=== PATIENT | female | born 1955 | race Caucasian/White ===

== ENCOUNTER 2019-11-17 12:49 | Emergency (ER) | payer OTHER ==
[2019-11-17] MEDS ORDERED: Sodium Chloride 0.9% 1000 ML 1,000 ML IV STA (13:02)
[2019-11-17] MEDS ORDERED: Sodium Chloride 0.9% 1000 ML 1,000 ML ONE (13:12)
--- NOTE | 2019-11-17 13:22 | XRAY ---
Indication: Palpitations. Comparison: None Portable chest demonstrates normal heart and lungs. Bony thorax intact with minimal degenerative changes and mild double curvature scoliosis.
[2019-11-17 13:34] LABS: Absolute Neutrophil Ct (ANC) 6.55 (1.4-6.9); BASOPHIL % 0.4 % (0.0-0.4); Basophil (Absolute #) 0.04 (0-0.4); Eosinophil % 0.1 % (0.00-5.0); Eosinophil (Absolute #) 0.01 (0-0.5); Hematocrit 43.6 % (35-47); Hemoglobin 14.3 gm/dl (12.0-16.0); Lymphocyte (Absolute #) 1.84 (1.0-4.6); Lymphocytes % 20.1 % (24.0-44.0); Mean Cell Volume 94.6 fl (78-100); Mean Corpuscular Hgb Concent. 32.8 g/dl (32-36); Mean Platelet Volume 10.5 fl (7.5-11.0); Monocyte (Absolute #) 0.73 (0.0-1.3); Neutrophil % 71.4 % (36.0-66.0); Platelet Count 341 K/mm3 (150-450); Red Blood Count 4.61 M/mm3 (4.1-5.4); Red Cell Distribution Width 13.6 % (11.5-14.0); White Blood Count 9.2 K/mm3 (4.0-10.5)
[2019-11-17 13:38] LABS: INR 1.04 (0.8-3.0); PROTIME 11.8 SECONDS (9.95-12.35)
[2019-11-17 13:41] LABS: PTT 32.9 SECONDS (25.3-37.0)
[2019-11-17 13:51] LABS: ALBUMIN 5.5 g/dL (3.5-5.0); ALKALINE PHOSPHATASE 69 U/L (38-126); AMYLASE 81 U/L (30-110); ANION GAP 14.6 MEQ/L (5-15); BLOOD UREA NITROGEN 11 mg/dL (7-17); CHLORIDE 101 mmol/L (98-107); Calcium 10.7 mg/dL (8.4-10.2); Carbon Dioxide 29 mmol/L (22-30); Creatinine 1 0.71 mg/dL (0.52-1.04); EST GLOMERULAR FILTRATION RATE > 60.0 ML/MIN; Glucose 172 mg/dL (74-106); LIPASE 107 U/L (23-300); NT PRO BNP 108 pg/mL (0-900); Potassium 3.7 mmol/L (3.5-5.1); SGOT/AST 24 U/L (14-36); SGPT/ALT 17 U/L (0-35); SODIUM 141 mmol/L (137-145); Total Protein 8.9 g/dL (6.3-8.2)
[2019-11-17 13:56] LABS: D-DIMER QUANTITATIVE < 215 ng/mL (215-500)
[2019-11-17] MEDS ORDERED: Lopressor 25MG Tab PO ONE (14:43)
[2019-11-17] MEDS ORDERED: Lopressor 25MG Tab ONE (15:01)
--- NOTE | 2019-11-17 15:07 | ERPHSYRPT ---
- History of Present Illness Time Seen by Provider: 11/17/19 13:05 Source: patient Exam Limitations: no limitations Patient Subjective Stated Complaint: palpitations Triage Nursing Assessment: pt to ED c/o palpitations x 1 day, intermittently comes and goes for couple months. denies CP or SOB with sx. only correlating sx is dry mouth and occasional hot flashes. typically lasts less than a day. 0/10 pain. no COVID sx or exposure. heart sounds clear, lung sounds clear and equal bilat. Physician History: Is a 64-year-old white female who has had palpitations on and off for a few months seems to getting worse. She noted the onset today when she awoke and it has continued. She denies any nausea vomiting diarrhea no chest pain no history of cardiac problems no change in her weight. Timing/Duration: today Chest Pain Radiation: no radiation Severity of Pain-Max: none Severity of Pain-Current: none Nitro Today/Relief: no nitro taken today Aspirin Treatment Today: no aspirin today Allergies/Adverse Reactions: sulfamethoxazole [From Bactrim] Allergy (Mild, Verified 11/17/19 13:06) Rash trimethoprim [From Bactrim] Allergy (Mild, Verified 11/17/19 13:06) Rash Hx Tetanus, Diphtheria Vaccination/Date Given: Yes Hx Influenza Vaccination/Date Given: Yes Immunizations Up to Date: Yes Travel Risk - International Travel Have you traveled outside of the country in past 3 weeks: No - Coronavirus Screening Close contact with a COVID-19 positive Pt in past 14-21 Days: No - Review of Systems Constitutional: No Fever, No Chills Eyes: No Symptoms Ears, Nose, & Throat: No Symptoms Respiratory: No Cough, No Dyspnea Cardiac: Palpitations, No Chest Pain, No Edema, No Syncope Abdominal/Gastrointestinal: No Abdominal Pain, No Nausea, No Vomiting, No Diarrhea Genitourinary Symptoms: No Dysuria Musculoskeletal: No Back Pain, No Neck Pain Skin: No Rash Neurological: No Dizziness, No Focal Weakness, No Sensory Changes Psychological: No Symptoms Endocrine: No Symptoms All Other Systems: Reviewed and Negative - Past Medical History Pertinent Past Medical History: Yes Musculoskeletal History: Osteoporosis - Past Surgical History Past Surgical History: Yes Other Surgical History: cyst removed from ovary 1992 - Social History Smoking Status: Never smoker Exposure to second hand smoke: No Drug Use: none Patient Lives Alone: No - Nursing Vital Signs Nursing Vital Signs: Initial Vital Signs Temperature 98.1 F 11/17/19 12:54 Pulse Rate 108 H 11/17/19 12:54 Respiratory Rate 19 11/17/19 12:54 Blood Pressure 190/96 11/17/19 12:54 O2 Sat by Pulse Oximetry 99 11/17/19 12:54 Pain Scale Pain Intensity 4 - Physical Exam General Appearance: no apparent distress, alert Eye Exam: PERRL/EOMI, eyes nml inspection Ears, Nose, Throat Exam: normal ENT inspection, moist mucous membranes Neck Exam: normal inspection, non-tender, supple Respiratory Exam: normal breath sounds, lungs clear, No respiratory distress Cardiovascular Exam: regular rate/rhythm, normal heart sounds, tachycardia (sinus tach rate of 105), No edema Gastrointestinal/Abdomen Exam: soft, No tenderness, No mass Back Exam: normal inspection, No CVA tenderness, No vertebral tenderness Extremity Exam: normal inspection, normal range of motion Neurologic Exam: alert, oriented x 3, cooperative, normal mood/affect, nml cerebellar function, sensation nml, No motor deficits Skin Exam: normal color, warm, dry Lymphatic Exam: No adenopathy SpO2: 98 - Course Nursing assessment & vital signs reviewed: Yes EKG Interpreted by Me: RATE, Sinus Tach, NORMAL AXIS, NORMAL INTERVALS, NORMAL QRS - Radiology Exams Chest X-ray Interpretation: Reviewed by me, Negative Ordered Tests: Active Orders 24 hr Category Date Time Status Sole Layer STAT Care 11/17/19 13:03 Active EKG-ER Only STAT Care 11/17/19 13:02 Active CHEST 1 VIEW (PORTABLE) Stat Exams 11/17/19 13:03 Completed AMYLASE Stat Lab 11/17/19 13:25 Completed CBC W DIFF Stat Lab 11/17/19 13:25 Completed CMP Stat Lab 11/17/19 13:25 Completed D-DIMER QUANTITATIVE Stat Lab 11/17/19 13:25 Completed LIPASE Stat Lab 11/17/19 13:25 Completed Lactic Acid Stat Lab 11/17/19 13:02 Completed NT PRO BNP Stat Lab 11/17/19 13:25 Completed PROTIME WITH INR Stat Lab 11/17/19 13:25 Completed PTT Stat Lab 11/17/19 13:25 Completed TROPONIN Q3H Lab 11/17/19 13:25 Completed TROPONIN Q3H Lab 11/17/19 16:15 Ordered TROPONIN Q3H Lab 11/17/19 19:15 Ordered TROPONIN Q3H Lab 11/17/19 22:15 Ordered TROPONIN Q3H Lab 11/18/19 01:15 Ordered TSH [TSH, 3RD Generation] Stat Lab 11/17/19 13:05 Completed UA W/RFX UR CULTURE Stat Lab 11/17/19 13:03 Uncollected Urine Triage Profile Stat Lab 11/17/19 13:03 Uncollected Medication Summary Discontinued Medications Generic Name Dose Route Start Last Admin Trade Name Sveta PRN Reason Stop Dose Admin Sodium Chloride 1,000 mls @ 999 mls/hr 11/17/19 13:02 11/17/19 14:59 Sodium Chloride 0.9% 1000 Ml IV 11/17/19 14:02 Infused .Q1H1M STA Infusion Sodium Chloride Confirm 11/17/19 13:12 Sodium Chloride 0.9% 1000 Ml Administered 11/17/19 13:13 Dose 1,000 mls @ ud .ROUTE .STK-MED ONE Metoprolol Tartrate 25 mg 11/17/19 14:43 11/17/19 15:02 Lopressor 25mg Tab PO 11/17/19 14:44 25 mg STAT ONE Administration Lab/Rad Data: Laboratory Result Diagrams 11/17/19 13:25 11/17/19 13:25 Laboratory Results 11/17/19 11/17/19 11/17/19 Range/Units 13:25 13:25 13:25 WBC (4.0-10.5) K/mm3 RBC (4.1-5.4) M/mm3 Hgb (12.0-16.0) gm/dl Hct (35-47) % MCV (78-100) fl MCH (26-32) pg MCHC (32-36) g/dl RDW (11.5-14.0) % Plt Count (150-450) K/mm3 MPV (7.5-11.0) fl Gran % (36.0-66.0) % Eos # (Auto) (0-0.5) Absolute Lymphs (auto) (1.0-4.6) Absolute Monos (auto) (0.0-1.3) Lymphocytes % (24.0-44.0) % Monocytes % (0.0-12.0) % Eosinophils % (0.00-5.0) % Basophils % (0.0-0.4) % Absolute Granulocytes (1.4-6.9) Basophils # (0-0.4) PT 11.8 (9.95-12.35) SECONDS INR 1.04 (0.8-3.0) APTT 32.9 (25.3-37.0) SECONDS D-Dimer < 215 L (215-500) ng/mL Sodium 141 (137-145) mmol/L Potassium 3.7 (3.5-5.1) mmol/L Chloride 101 (98-107) mmol/L Carbon Dioxide 29 (22-30) mmol/L Anion Gap 14.6 (5-15) MEQ/L BUN 11 (7-17) mg/dL Creatinine 0.71 (0.52-1.04) mg/dL Estimated GFR > 60.0 ML/MIN Glucose 172 H (74-106) mg/dL Lactic Acid (0.4-2.0) Calcium 10.7 H (8.4-10.2) mg/dL Total Bilirubin 0.70 (0.2-1.3) mg/dL AST 24 (14-36) U/L ALT 17 (0-35) U/L Alkaline Phosphatase 69 (38-126) U/L Troponin I < 0.012 (0.000-0.034) ng/mL NT-Pro-B Natriuret Pep 108 (0-900) pg/mL Serum Total Protein 8.9 H (6.3-8.2) g/dL Albumin 5.5 H (3.5-5.0) g/dL Amylase 81 (30-110) U/L Lipase 107 (23-300) U/L TSH 3rd Generation (0.47-4.68) mIU/L 11/17/19 11/17/19 11/17/19 Range/Units 13:25 13:05 13:02 WBC 9.2 (4.0-10.5) K/mm3 RBC 4.61 (4.1-5.4) M/mm3 Hgb 14.3 (12.0-16.0) gm/dl Hct 43.6 (35-47) % MCV 94.6 (78-100) fl MCH 31.0 (26-32) pg MCHC 32.8 (32-36) g/dl RDW 13.6 (11.5-14.0) % Plt Count 341 (150-450) K/mm3 MPV 10.5 (7.5-11.0) fl Gran % 71.4 H (36.0-66.0) % Eos # (Auto) 0.01 (0-0.5) Absolute Lymphs (auto) 1.84 (1.0-4.6) Absolute Monos (auto) 0.73 (0.0-1.3) Lymphocytes % 20.1 L (24.0-44.0) % Monocytes % 8.0 (0.0-12.0) % Eosinophils % 0.1 (0.00-5.0) % Basophils % 0.4 (0.0-0.4) % Absolute Granulocytes 6.55 (1.4-6.9) Basophils # 0.04 (0-0.4) PT (9.95-12.35) SECONDS INR (0.8-3.0) APTT (25.3-37.0) SECONDS D-Dimer (215-500) ng/mL Sodium (137-145) mmol/L Potassium (3.5-5.1) mmol/L Chloride (98-107) mmol/L Carbon Dioxide (22-30) mmol/L Anion Gap (5-15) MEQ/L BUN (7-17) mg/dL Creatinine (0.52-1.04) mg/dL Estimated GFR ML/MIN Glucose (74-106) mg/dL Lactic Acid 1.6 (0.4-2.0) Calcium (8.4-10.2) mg/dL Total Bilirubin (0.2-1.3) mg/dL AST (14-36) U/L ALT (0-35) U/L Alkaline Phosphatase (38-126) U/L Troponin I (0.000-0.034) ng/mL NT-Pro-B Natriuret Pep (0-900) pg/mL Serum Total Protein (6.3-8.2) g/dL Albumin (3.5-5.0) g/dL Amylase (30-110) U/L Lipase (23-300) U/L TSH 3rd Generation 1.510 (0.47-4.68) mIU/L - Progress Progress: improved Air Movement: good Blood Culture(s) Obtained: No Antibiotics given: No - Departure Departure Disposition: Home Clinical Impression: Palpitations Condition: Stable Critical Care Time: No Referrals: KATHY RUBIN DO [Primary Care Provider] - Instructions: Palpitations (DC) Prescriptions: Metoprolol Succinate 50 mg [Toprol Xl 50 MG] 50 mg PO DAILY 30 Days #30 tablet
[2019-11-17 16:02] VITALS: BP 140/93; PULSE 67; O2SAT 97
== END 2019-11-17 16:00 | disposition home or self-care (01) ==
LOC: ED 12:49
DX: R00.2 Palpitations (principal)
CPT/HCPCS: 36000; 36415; 71045; 80053; 82150; 83605; 83690; 83880; 84443; 84484; 85025; 85379; 85610; 85730; 93005; 93041; 96367; 96374; 99284; A9270-GY

== ENCOUNTER 2019-11-30 09:33 | Observation (INO) | payer OTHER ==
--- NOTE | 2019-11-30 09:51 | ERPHSYRPT ---
- History of Present Illness Time Seen by Provider: 11/30/19 09:40 Source: patient Exam Limitations: no limitations Physician History: Patient is a 64-year-old female presents to our ED as a referral from Dr. Moore for evaluation of uncontrolled hypertension. Patient states that she has not been feeling well for 3 weeks. However symptoms worsened yesterday. Patient states she feels jittery. Patient's blood pressure has been higher than normal. Patient's primary care physician has been working to control patient's blood pressure. Patient was initially on metoprolol and then switched to diltiazem. Patient currently on 120 mg daily. Patient states she took a dose of lisinopril today in addition to her diltiazem. Patient preliminary work-up is suspicious for possible pheochromocytoma. Patient did have a CAT scan to further investigate potential masses however are normal adrenal masses were identified. In light of her ongoing symptoms patient was sent to our ED for a cardiac work-up and admission for further evaluation and treatment. Patient is currently asymptomatic. No nausea or vomiting. No diarrhea. No rash. No headache. No diaphoresis. Patient voices no other complaints concerns at this time. Timing/Duration: yesterday Severity: moderate Modifying Factors: Improves With: nothing Associated Symptoms: other (Feels "jittery"), No nausea, No vomiting, No abdominal pain, No shortness of breath, No heartburn, No diaphoresis, No cough, No chills Allergies/Adverse Reactions: sulfamethoxazole [From Bactrim] Allergy (Mild, Verified 11/30/19 09:54) Rash trimethoprim [From Bactrim] Allergy (Mild, Verified 11/30/19 09:54) Rash Home Medications: Diltiazem HCl [Cartia Xt] 120 mg PO DAILY 11/30/19 [History] Hx Tetanus, Diphtheria Vaccination/Date Given: Yes Hx Influenza Vaccination/Date Given: Yes Travel Risk - International Travel Have you traveled outside of the country in past 3 weeks: No - Coronavirus Screening Are you exhibiting any of the following symptoms?: No Close contact with a COVID-19 positive Pt in past 14-21 Days: No - Review of Systems Constitutional: No Symptoms, No Fever, No Chills Eyes: No Symptoms Ears, Nose, & Throat: No Symptoms Respiratory: No Symptoms, No Cough, No Dyspnea Cardiac: No Symptoms, No Chest Pain, No Edema, No Syncope Abdominal/Gastrointestinal: No Symptoms, No Abdominal Pain, No Nausea, No Vomiting, No Diarrhea Genitourinary Symptoms: No Symptoms, No Dysuria Musculoskeletal: No Symptoms, No Back Pain, No Neck Pain Skin: No Symptoms, No Rash Neurological: No Symptoms, No Dizziness, No Focal Weakness, No Sensory Changes Psychological: No Symptoms Endocrine: No Symptoms Hematologic/Lymphatic: No Symptoms Immunological/Allergic: No Symptoms All Other Systems: Reviewed and Negative - Past Medical History Pertinent Past Medical History: Yes Musculoskeletal History: Osteoporosis - Past Surgical History Past Surgical History: Yes Other Surgical History: cyst removed from ovary 1992 - Social History Smoking Status: Never smoker Exposure to second hand smoke: No Drug Use: none Patient Lives Alone: No - Nursing Vital Signs Nursing Vital Signs: Initial Vital Signs Temperature 98.3 F 11/30/19 09:39 Pulse Rate 90 11/30/19 09:39 Respiratory Rate 17 11/30/19 09:39 Blood Pressure 166/85 11/30/19 09:39 O2 Sat by Pulse Oximetry 99 11/30/19 09:39 Pain Scale Pain Intensity 0 - Physical Exam General Appearance: no apparent distress, alert Eye Exam: PERRL/EOMI, eyes nml inspection Ears, Nose, Throat Exam: normal ENT inspection, TMs normal, pharynx normal, moist mucous membranes Neck Exam: normal inspection, non-tender, supple, full range of motion Respiratory Exam: normal breath sounds, lungs clear, No respiratory distress Cardiovascular Exam: regular rate/rhythm, normal heart sounds, normal peripheral pulses Gastrointestinal/Abdomen Exam: soft, normal bowel sounds, No tenderness, No mass Back Exam: normal inspection, normal range of motion, No CVA tenderness, No vertebral tenderness Extremity Exam: normal inspection, normal range of motion, pelvis stable Neurologic Exam: alert, oriented x 3, cooperative, normal mood/affect, nml cerebellar function, nml station & gait, sensation nml, No motor deficits Skin Exam: normal color, warm, dry, No rash Lymphatic Exam: No adenopathy SpO2 Interpretation: normal SpO2: 99 O2 Delivery: Room Air - Course Nursing assessment & vital signs reviewed: Yes EKG Interpreted by Me: RATE (78), Sinus Rhythm, NORMAL AXIS, NORMAL INTERVALS - Radiology Exams Chest X-ray Interpretation: Teleradiologist Report (Mildly hyperinflated lungs. Otherwise no acute process identified.) Ordered Tests: Active Orders 24 hr Category Date Time Status President/Gm Production & Live Experiences STAT Care 11/30/19 09:49 Active EKG-ER Only STAT Care 11/30/19 09:48 Active IV Insertion STAT Care 11/30/19 09:48 Active Pulse Oximetry (ED) STAT Care 11/30/19 09:48 Active CHEST 1 VIEW (PORTABLE) Stat Exams 11/30/19 09:49 Completed CBC W DIFF Stat Lab 11/30/19 10:00 Completed CMP Stat Lab 11/30/19 10:00 Completed MAGNESIUM Stat Lab 11/30/19 10:00 Completed NT PRO BNP Stat Lab 11/30/19 10:00 Completed TROPONIN Q3H Lab 11/30/19 10:00 Completed TROPONIN Q3H Lab 11/30/19 13:00 Ordered TROPONIN Q3H Lab 11/30/19 16:00 Ordered TROPONIN Q3H Lab 11/30/19 19:00 Ordered TROPONIN Q3H Lab 11/30/19 22:00 Ordered UA W/RFX UR CULTURE Stat Lab 11/30/19 10:00 Completed Transfer Order Routine Transfer 11/30/19 Ordered Lab/Rad Data: Laboratory Result Diagrams 11/30/19 10:00 11/30/19 10:00 Laboratory Results 11/30/19 11/30/19 11/30/19 Range/Units 10:00 10:00 10:00 WBC (4.0-10.5) K/mm3 RBC (4.1-5.4) M/mm3 Hgb (12.0-16.0) gm/dl Hct (35-47) % MCV (78-100) fl MCH (26-32) pg MCHC (32-36) g/dl RDW (11.5-14.0) % Plt Count (150-450) K/mm3 MPV (7.5-11.0) fl Gran % (36.0-66.0) % Eos # (Auto) (0-0.5) Absolute Lymphs (auto) (1.0-4.6) Absolute Monos (auto) (0.0-1.3) Lymphocytes % (24.0-44.0) % Monocytes % (0.0-12.0) % Eosinophils % (0.00-5.0) % Basophils % (0.0-0.4) % Absolute Granulocytes (1.4-6.9) Basophils # (0-0.4) Sodium 141 (137-145) mmol/L Potassium 3.4 L (3.5-5.1) mmol/L Chloride 103 (98-107) mmol/L Carbon Dioxide 28 (22-30) mmol/L Anion Gap 13.3 (5-15) MEQ/L BUN 9 (7-17) mg/dL Creatinine 0.61 (0.52-1.04) mg/dL Estimated GFR > 60.0 ML/MIN Glucose 132 H (74-106) mg/dL Calcium 10.5 H (8.4-10.2) mg/dL Magnesium 2.1 (1.6-2.3) mg/dL Total Bilirubin 0.50 (0.2-1.3) mg/dL AST 22 (14-36) U/L ALT 19 (0-35) U/L Alkaline Phosphatase 73 (38-126) U/L Troponin I < 0.012 (0.000-0.034) ng/mL NT-Pro-B Natriuret Pep 144 (0-900) pg/mL Serum Total Protein 8.7 H (6.3-8.2) g/dL Albumin 5.3 H (3.5-5.0) g/dL Urine Color STRAW (YELLOW) Urine Appearance CLEAR (CLEAR) Urine pH 7.0 (5-6) Ur Specific Buhl 1.002 (1.005-1.025) Urine Protein NEGATIVE (Negative) Urine Ketones NEGATIVE (NEGATIVE) Urine Blood NEGATIVE (0-5) Luis/ul Urine Nitrite NEGATIVE (NEGATIVE) Urine Bilirubin NEGATIVE (NEGATIVE) Urine Urobilinogen NEGATIVE (0-1) mg/dL Ur Leukocyte Esterase NEGATIVE (NEGATIVE) Urine WBC (Auto) NONE (0-5) /HPF U Epithel Cells (Auto) NONE (FEW) /HPF Urine Culture Reflexed NO (NO) Urine Glucose NEGATIVE (NEGATIVE) mg/dL 11/30/19 Range/Units 10:00 WBC 10.4 (4.0-10.5) K/mm3 RBC 4.83 (4.1-5.4) M/mm3 Hgb 14.6 (12.0-16.0) gm/dl Hct 45.0 (35-47) % MCV 93.2 (78-100) fl MCH 30.2 (26-32) pg MCHC 32.4 (32-36) g/dl RDW 13.7 (11.5-14.0) % Plt Count 369 (150-450) K/mm3 MPV 10.3 (7.5-11.0) fl Gran % 78.3 H (36.0-66.0) % Eos # (Auto) 0.01 (0-0.5) Absolute Lymphs (auto) 1.51 (1.0-4.6) Absolute Monos (auto) 0.70 (0.0-1.3) Lymphocytes % 14.6 L (24.0-44.0) % Monocytes % 6.8 (0.0-12.0) % Eosinophils % 0.1 (0.00-5.0) % Basophils % 0.2 (0.0-0.4) % Absolute Granulocytes 8.13 H (1.4-6.9) Basophils # 0.02 (0-0.4) Sodium (137-145) mmol/L Potassium (3.5-5.1) mmol/L Chloride (98-107) mmol/L Carbon Dioxide (22-30) mmol/L Anion Gap (5-15) MEQ/L BUN (7-17) mg/dL Creatinine (0.52-1.04) mg/dL Estimated GFR ML/MIN Glucose (74-106) mg/dL Calcium (8.4-10.2) mg/dL Magnesium (1.6-2.3) mg/dL Total Bilirubin (0.2-1.3) mg/dL AST (14-36) U/L ALT (0-35) U/L Alkaline Phosphatase (38-126) U/L Troponin I (0.000-0.034) ng/mL NT-Pro-B Natriuret Pep (0-900) pg/mL Serum Total Protein (6.3-8.2) g/dL Albumin (3.5-5.0) g/dL Urine Color (YELLOW) Urine Appearance (CLEAR) Urine pH (5-6) Ur Specific Buhl (1.005-1.025) Urine Protein (Negative) Urine Ketones (NEGATIVE) Urine Blood (0-5) Luis/ul Urine Nitrite (NEGATIVE) Urine Bilirubin (NEGATIVE) Urine Urobilinogen (0-1) mg/dL Ur Leukocyte Esterase (NEGATIVE) Urine WBC (Auto) (0-5) /HPF U Epithel Cells (Auto) (FEW) /HPF Urine Culture Reflexed (NO) Urine Glucose (NEGATIVE) mg/dL - Progress Progress: improved Progress Note: Patient reassessed. No active complaints at this time. Vital stable. Work-up at this point essentially negative. However patient has labile hypertension. Outpatient work-up suggestive of pheochromocytoma. Case discussed with Dr. Moore who request admission as well as consult to Dr. luna. Plan of care discussed with patient. She agrees to admission to [facility] for further evaluation and treatment. 11/30/19 10:59 Discussed with : Tonya Will see patient in: hospital (observation) Counseled pt/family regarding: lab results, diagnosis, rad results - Departure Departure Disposition: Observation Clinical Impression: Uncontrolled hypertension Condition: Stable Critical Care Time: No Referrals: KATHY RUBIN DO [Primary Care Provider] -
[2019-11-30 10:15] LABS: Absolute Neutrophil Ct (ANC) 8.13 (1.4-6.9); BASOPHIL % 0.2 % (0.0-0.4); Basophil (Absolute #) 0.02 (0-0.4); Eosinophil % 0.1 % (0.00-5.0); Eosinophil (Absolute #) 0.01 (0-0.5); Hemoglobin 14.6 gm/dl (12.0-16.0); Lymphocyte (Absolute #) 1.51 (1.0-4.6); Lymphocytes % 14.6 % (24.0-44.0); Mean Cell Volume 93.2 fl (78-100); Mean Corpuscular Hemoglobin 30.2 pg (26-32); Mean Corpuscular Hgb Concent. 32.4 g/dl (32-36); Mean Platelet Volume 10.3 fl (7.5-11.0); Monocytes % 6.8 % (0.0-12.0); Neutrophil % 78.3 % (36.0-66.0); Platelet Count 369 K/mm3 (150-450); Red Blood Count 4.83 M/mm3 (4.1-5.4); Red Cell Distribution Width 13.7 % (11.5-14.0); White Blood Count 10.4 K/mm3 (4.0-10.5)
[2019-11-30 10:20] LABS: Appearance CLEAR (CLEAR); Bilirubin NEGATIVE (NEGATIVE); Blood NEGATIVE Ery/ul (0-5); Glucose NEGATIVE (NEGATIVE); Ketones NEGATIVE (NEGATIVE); Leukocyte Esterase NEGATIVE (NEGATIVE); Nitrite NEGATIVE (NEGATIVE); Protein,Urine Dip NEGATIVE (Negative); Specific Gravity 1.002 (1.005-1.025); Urobilinogen NEGATIVE mg/dL (0-1)
--- NOTE | 2019-11-30 10:28 | XRAY ---
Exam: AP upright portable chest film from 11/30/2019. Comparison: AP upright portable chest film from 11/17/2019. Indication: Tachycardia, elevated blood pressure; chest pain. Findings: The transverse heart size is normal. There is mild tortuosity of descending thoracic aorta. The lungs appear mildly hyperinflated. No air space infiltrates, vascular congestion, pneumothorax, or pleural fluid is seen. I again see a minimal S-shaped scoliosis within the lower thoracic spine representing no change. No acute osseous process is seen. EKG leads are noted. Impression: 1. Mildly hyperinflated chest. Correlate clinically. 2. Otherwise, no acute cardiopulmonary disease is seen.
[2019-11-30 10:31] LABS: ALBUMIN 5.3 g/dL (3.5-5.0); ALKALINE PHOSPHATASE 73 U/L (38-126); ANION GAP 13.3 MEQ/L (5-15); BLOOD UREA NITROGEN 9 mg/dL (7-17); CHLORIDE 103 mmol/L (98-107); Calcium 10.5 mg/dL (8.4-10.2); Carbon Dioxide 28 mmol/L (22-30); Creatinine 1 0.61 mg/dL (0.52-1.04); EST GLOMERULAR FILTRATION RATE > 60.0 ML/MIN; Glucose 132 mg/dL (74-106); MAGNESIUM 2.1 mg/dL (1.6-2.3); NT PRO BNP 144 pg/mL (0-900); Potassium 3.4 mmol/L (3.5-5.1); SGOT/AST 22 U/L (14-36); SGPT/ALT 19 U/L (0-35); SODIUM 141 mmol/L (137-145); Total Protein 8.7 g/dL (6.3-8.2)
[2019-11-30 20:08] LABS: ANION GAP 14.3 MEQ/L (5-15); BLOOD UREA NITROGEN 12 mg/dL (7-17); CHLORIDE 103 mmol/L (98-107); Calcium 10.1 mg/dL (8.4-10.2); Carbon Dioxide 25 mmol/L (22-30); Cholesterol 175 mg/dL (50-200); Creatinine 1 0.63 mg/dL (0.52-1.04); EST GLOMERULAR FILTRATION RATE > 60.0 ML/MIN; Glucose 109 mg/dL (74-106); HDL CHOLESTEROL 73 mg/dL (40-60); LDL, DIRECT 87 mg/dL (30-100); Potassium 3.9 mmol/L (3.5-5.1); Risk Ratio 2.4; SODIUM 138 mmol/L (137-145); TRIGLYCERIDE 73 mg/dL (30-150)
[2019-11-30] MEDS ORDERED: Sodium Chloride 0.9% 10 ML FLUSH Syringe IV SCH (22:00)
[2019-12-01 05:35] LABS: Absolute Neutrophil Ct (ANC) 5.42 (1.4-6.9); BASOPHIL % 0.4 % (0.0-0.4); Basophil (Absolute #) 0.04 (0-0.4); Eosinophil (Absolute #) 0.09 (0-0.5); Hematocrit 39.8 % (35-47); Hemoglobin 12.9 gm/dl (12.0-16.0); Lymphocytes % 30.9 % (24.0-44.0); Mean Cell Volume 94.3 fl (78-100); Mean Corpuscular Hemoglobin 30.6 pg (26-32); Mean Corpuscular Hgb Concent. 32.4 g/dl (32-36); Mean Platelet Volume 10.8 fl (7.5-11.0); Monocyte (Absolute #) 0.93 (0.0-1.3); Monocytes % 9.9 % (0.0-12.0); Neutrophil % 57.8 % (36.0-66.0); Platelet Count 325 K/mm3 (150-450); Red Blood Count 4.22 M/mm3 (4.1-5.4); Red Cell Distribution Width 13.9 % (11.5-14.0); White Blood Count 9.4 K/mm3 (4.0-10.5)
[2019-12-01 05:37] LABS: ALBUMIN 4.5 g/dL (3.5-5.0); ALKALINE PHOSPHATASE 51 U/L (38-126); ANION GAP 11.1 MEQ/L (5-15); BLOOD UREA NITROGEN 12 mg/dL (7-17); CHLORIDE 102 mmol/L (98-107); Carbon Dioxide 27 mmol/L (22-30); Creatinine 1 0.65 mg/dL (0.52-1.04); EST GLOMERULAR FILTRATION RATE > 60.0 ML/MIN; Glucose 99 mg/dL (74-106); Potassium 3.8 mmol/L (3.5-5.1); SGOT/AST 21 U/L (14-36); SGPT/ALT 16 U/L (0-35); SODIUM 137 mmol/L (137-145); Total Protein 7.1 g/dL (6.3-8.2)
[2019-12-01 05:43] LABS: TROPONIN < 0.012 ng/mL (0.000-0.034)
--- NOTE | 2019-12-01 08:24 | CONS ---
CONSULT DATE: 11/30/2019 BRIEF HISTORY: This is a 64 year old female who was seen because recent onset of hypertension. The patient started to feel anxious and jittery for the last three weeks and she has been checking her blood pressure and it has been somewhat labile with the systolic blood pressure reaching about 190 associated with some mild tachycardia. She did have one episode of diaphoresis which was associated with hypertensive episode. She was recently placed on metoprolol and then switched to diltiazem. She has not been checking her blood pressure prior to this event. She denies any chest pain, no shortness of breath. She has never had any cardiac related disease in the past. She is a fairly active individual. She usually exercises by walking about two to three miles a day. She denies any paroxysmal nocturnal dyspnea, no pedal edema and no syncopal attacks. She had a CT scan of the abdomen which showed normal adrenal. She denies any diarrhea, vomiting, nausea or headache. CARDIAC RISK FACTORS: Negative for diabetes. Recent onset of hypertension. She does not smoke. No known hyperlipidemia. FAMILY HISTORY: Negative for premature coronary artery disease although mother from myocardial infarction at age 89. REVIEW OF SYSTEMS: SERVER ASSISTANT: No history of stroke. No seizures. No chronic headache. No diplopia. No blurring of vision. RESPIRATORY: No chronic cough. No hemoptysis. No pleuritic pain. CVS: History of palpitations. GI: No history of reflux. No heartburn. No nausea or vomiting. No diarrhea. : Negative for dysuria or hematuria. No nocturia. No urinary frequency. PERIPHERAL VASCULAR: Negative for DVT or claudication. MUSCULOSKELETAL: No significant degenerative joint disorder. SKIN: No active dermatological problems. HEMATOLOGY: No history of blood dyscrasia or transfusions. ENDOCRINE: No thyroid disorder. PAST SURGICAL HISTORY: Includes removal of a cyst from the ovary. SOCIAL HISTORY: She is . 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 She has no significant alcohol intake. PHYSICAL EXAMINATION: VITAL SIGNS: Her blood pressure initially was 166/85 with a heart rate of 90, respirations about 16. GENERAL: The patient is an elderly female oriented, conversant, who does not appear in any form of distress. HEENT: Unremarkable. NECK: No significant JVD. No carotid bruit. CHEST: The breath sounds are clear bilaterally. CARDIAC: Heart tones are within normal. The rhythm is regular. There is a short mid systolic murmur along the left parasternal border. The rhythm is regular. There is no gallop or rub. ABDOMEN: Soft with normal bowel sounds. No bruit. EXTREMITIES: No significant edema with good distal pulses. LAB DATA AND DIAGNOSTIC TESTS: Serial troponin I has been normal. The BUN 9, creatinine 0.6 with GFR greater than 60, potassium 3.4. Serum transaminases are normal. CBC is normal. EKG shows sinus rhythm with no significant ST-T displacement. ASSESSMENT AND PLAN: Recent onset of hypertension, will work her up for secondary types of hypertension. We are going to get a 24 hour urine, vanillymandelic acid (VMA), metanephrine and serum aldosterone will also be obtained. Meanwhile continue with current medical regimen. Further recommendations will be made after the tests have been completed. Echocardiogram will be obtained to assess for left ventricular hypertrophy and also etiology o the cardiac murmur which appeared to be secondary to mitral regurgitation. I will follow up with you.
--- NOTE | 2019-12-01 08:41 | PCM.SSS ---
History of Present Illness - Chief Complaint Chief Complaint: uncontrolled hypertension;suspect pheochromocytoma History of Present Illness: is a 64 year old female who has been in good health without and chronic dz other than osteoporosis. She was admitted for obs due to being up all night with B/P 190/90s and "jittery all night long like a caffine overload". Her is a retired EMT and has been taking her vitals since this started about a month ago.She has had pulse 110 and B/P as high as 198/100. Medications & Allergies Home Medications: Home Medication List Diltiazem HCl [Cartia Xt] 120 mg PO DAILY 11/30/19 [History Confirmed 11/30/19] Allergies/Adverse Reactions: Allergies Allergy/AdvReac Type Severity Reaction Status Date / Time sulfamethoxazole Allergy Mild Rash Verified 11/30/19 12:16 [From Bactrim] trimethoprim [From Bactrim] Allergy Mild Rash Verified 11/30/19 12:16 - Past Medical History Past Medical History: Yes Neurological History: No Pertinent History ENT History: No Pertinent History Cardiac History: Hypertension Respiratory History: No Pertinent History Endocrine Medical History: No Pertinent History Musculoskelatal History: Osteoporosis GI Medical History: No Pertinent History History: No Pertinent History Pyscho-Social History: No Pertinent History Reproductive Disorders: No Pertinent History Comment: intestinal parasite (giardia) - Female History Are you now?: No - Past Surgical History Past Surgical History: Yes Neuro Surgical History: No Pertinent History Cardiac History: No Pertinent History Respiratory Surgery: No Pertinent History GI Surgical History: No Pertinent History Genitourinary Surgical Hx: No Pertinent History Musculskeletal Surgical Hx: No Pertinent History Female Surgical History: No Pertinent History Other Surgical History: cyst removed from ovary 1992 - Social History Smoking Status: Never smoker Exposure to second hand smoke: No Alcohol: Occasionally Drug Use: none - Physical Exam Vital Signs: Vital Signs - 24 hr Temp Pulse Resp BP Pulse Ox 12/01/19 08:00 98.0 F 59 L 17 122/69 94 L 12/01/19 04:00 98.0 F 56 L 16 129/70 98 11/30/19 23:54 98.1 F 70 18 107/71 96 11/30/19 19:15 98.4 F 74 18 125/71 98 11/30/19 15:40 98.3 F 87 20 126/69 98 09/03/20 12:04 98.1 F 86 18 143/75 95 11/30/19 12:00 98.1 F 86 143/75 95 11/30/19 11:59 98.1 F 86 143/75 95 11/30/19 11:37 66 18 121/73 98 11/30/19 11:01 99 11/30/19 10:44 76 18 143/90 98 11/30/19 09:53 100 11/30/19 09:39 98.3 F 90 17 166/85 99 Results - Labs Lab/Micro Results: Lab Results-Last 24 Hours 11/30/19 11/30/19 11/30/19 Range/Units 10:00 10:00 10:00 WBC 10.4 (4.0-10.5) K/mm3 RBC 4.83 (4.1-5.4) M/mm3 Hgb 14.6 (12.0-16.0) gm/dl Hct 45.0 (35-47) % MCV 93.2 (78-100) fl MCH 30.2 (26-32) pg MCHC 32.4 (32-36) g/dl RDW 13.7 (11.5-14.0) % Plt Count 369 (150-450) K/mm3 MPV 10.3 (7.5-11.0) fl Gran % 78.3 H (36.0-66.0) % Eos # (Auto) 0.01 (0-0.5) Absolute Lymphs (auto) 1.51 (1.0-4.6) Absolute Monos (auto) 0.70 (0.0-1.3) Lymphocytes % 14.6 L (24.0-44.0) % Monocytes % 6.8 (0.0-12.0) % Eosinophils % 0.1 (0.00-5.0) % Basophils % 0.2 (0.0-0.4) % Absolute Granulocytes 8.13 H (1.4-6.9) Basophils # 0.02 (0-0.4) Ionized Calcium (1.12-1.32) mmol/L Sodium 141 (137-145) mmol/L Potassium 3.4 L (3.5-5.1) mmol/L Chloride 103 (98-107) mmol/L Carbon Dioxide 28 (22-30) mmol/L Anion Gap 13.3 (5-15) MEQ/L BUN 9 (7-17) mg/dL Creatinine 0.61 (0.52-1.04) mg/dL Estimated GFR > 60.0 ML/MIN Glucose 132 H (74-106) mg/dL Calcium 10.5 H (8.4-10.2) mg/dL Magnesium 2.1 (1.6-2.3) mg/dL Total Bilirubin 0.50 (0.2-1.3) mg/dL AST 22 (14-36) U/L ALT 19 (0-35) U/L Alkaline Phosphatase 73 (38-126) U/L Troponin I < 0.012 (0.000-0.034) ng/mL NT-Pro-B Natriuret Pep 144 (0-900) pg/mL Serum Total Protein 8.7 H (6.3-8.2) g/dL Albumin 5.3 H (3.5-5.0) g/dL Triglycerides (30-150) mg/dL Cholesterol (50-200) mg/dL LDL Cholesterol (30-100) mg/dL HDL Cholesterol (40-60) mg/dL Heart Disease Risk Ratio TSH 3rd Generation (0.47-4.68) mIU/L Urine Color (YELLOW) Urine Appearance (CLEAR) Urine pH (5-6) Ur Specific [place] (1.005-1.025) Urine Protein (Negative) Urine Ketones (NEGATIVE) Urine Blood (0-5) Luis/ul Urine Nitrite (NEGATIVE) Urine Bilirubin (NEGATIVE) Urine Urobilinogen (0-1) mg/dL Ur Leukocyte Esterase (NEGATIVE) Urine WBC (Auto) (0-5) /HPF U Epithel Cells (Auto) (FEW) /HPF Urine Culture Reflexed (NO) Urine Glucose (NEGATIVE) mg/dL 11/30/19 11/30/19 11/30/19 Range/Units 10:00 13:04 16:07 WBC (4.0-10.5) K/mm3 RBC (4.1-5.4) M/mm3 Hgb (12.0-16.0) gm/dl Hct (35-47) % MCV (78-100) fl MCH (26-32) pg MCHC (32-36) g/dl RDW (11.5-14.0) % Plt Count (150-450) K/mm3 MPV (7.5-11.0) fl Gran % (36.0-66.0) % Eos # (Auto) (0-0.5) Absolute Lymphs (auto) (1.0-4.6) Absolute Monos (auto) (0.0-1.3) Lymphocytes % (24.0-44.0) % Monocytes % (0.0-12.0) % Eosinophils % (0.00-5.0) % Basophils % (0.0-0.4) % Absolute Granulocytes (1.4-6.9) Basophils # (0-0.4) Ionized Calcium (1.12-1.32) mmol/L Sodium (137-145) mmol/L Potassium (3.5-5.1) mmol/L Chloride (98-107) mmol/L Carbon Dioxide (22-30) mmol/L Anion Gap (5-15) MEQ/L BUN (7-17) mg/dL Creatinine (0.52-1.04) mg/dL Estimated GFR ML/MIN Glucose (74-106) mg/dL Calcium (8.4-10.2) mg/dL Magnesium (1.6-2.3) mg/dL Total Bilirubin (0.2-1.3) mg/dL AST (14-36) U/L ALT (0-35) U/L Alkaline Phosphatase (38-126) U/L Troponin I < 0.012 < 0.012 (0.000-0.034) ng/mL NT-Pro-B Natriuret Pep (0-900) pg/mL Serum Total Protein (6.3-8.2) g/dL Albumin (3.5-5.0) g/dL Triglycerides (30-150) mg/dL Cholesterol (50-200) mg/dL LDL Cholesterol (30-100) mg/dL HDL Cholesterol (40-60) mg/dL Heart Disease Risk Ratio TSH 3rd Generation (0.47-4.68) mIU/L Urine Color STRAW (YELLOW) Urine Appearance CLEAR (CLEAR) Urine pH 7.0 (5-6) Ur Specific [place] 1.002 (1.005-1.025) Urine Protein NEGATIVE (Negative) Urine Ketones NEGATIVE (NEGATIVE) Urine Blood NEGATIVE (0-5) Luis/ul Urine Nitrite NEGATIVE (NEGATIVE) Urine Bilirubin NEGATIVE (NEGATIVE) Urine Urobilinogen NEGATIVE (0-1) mg/dL Ur Leukocyte Esterase NEGATIVE (NEGATIVE) Urine WBC (Auto) NONE (0-5) /HPF U Epithel Cells (Auto) NONE (FEW) /HPF Urine Culture Reflexed NO (NO) Urine Glucose NEGATIVE (NEGATIVE) mg/dL 11/30/19 11/30/19 11/30/19 Range/Units 19:00 19:00 19:00 WBC (4.0-10.5) K/mm3 RBC (4.1-5.4) M/mm3 Hgb (12.0-16.0) gm/dl Hct (35-47) % MCV (78-100) fl MCH (26-32) pg MCHC (32-36) g/dl RDW (11.5-14.0) % Plt Count (150-450) K/mm3 MPV (7.5-11.0) fl Gran % (36.0-66.0) % Eos # (Auto) (0-0.5) Absolute Lymphs (auto) (1.0-4.6) Absolute Monos (auto) (0.0-1.3) Lymphocytes % (24.0-44.0) % Monocytes % (0.0-12.0) % Eosinophils % (0.00-5.0) % Basophils % (0.0-0.4) % Absolute Granulocytes (1.4-6.9) Basophils # (0-0.4) Ionized Calcium (1.12-1.32) mmol/L Sodium 138 (137-145) mmol/L Potassium 3.9 (3.5-5.1) mmol/L Chloride 103 (98-107) mmol/L Carbon Dioxide 25 (22-30) mmol/L Anion Gap 14.3 (5-15) MEQ/L BUN 12 (7-17) mg/dL Creatinine 0.63 (0.52-1.04) mg/dL Estimated GFR > 60.0 ML/MIN Glucose 109 H (74-106) mg/dL Calcium 10.1 (8.4-10.2) mg/dL Magnesium (1.6-2.3) mg/dL Total Bilirubin (0.2-1.3) mg/dL AST (14-36) U/L ALT (0-35) U/L Alkaline Phosphatase (38-126) U/L Troponin I < 0.012 (0.000-0.034) ng/mL NT-Pro-B Natriuret Pep 160 (0-900) pg/mL Serum Total Protein (6.3-8.2) g/dL Albumin (3.5-5.0) g/dL Triglycerides 73 (30-150) mg/dL Cholesterol 175 (50-200) mg/dL LDL Cholesterol 87 (30-100) mg/dL HDL Cholesterol 73 H (40-60) mg/dL Heart Disease Risk Ratio 2.4 TSH 3rd Generation 1.570 (0.47-4.68) mIU/L Urine Color (YELLOW) Urine Appearance (CLEAR) Urine pH (5-6) Ur Specific [place] (1.005-1.025) Urine Protein (Negative) Urine Ketones (NEGATIVE) Urine Blood (0-5) Luis/ul Urine Nitrite (NEGATIVE) Urine Bilirubin (NEGATIVE) Urine Urobilinogen (0-1) mg/dL Ur Leukocyte Esterase (NEGATIVE) Urine WBC (Auto) (0-5) /HPF U Epithel Cells (Auto) (FEW) /HPF Urine Culture Reflexed (NO) Urine Glucose (NEGATIVE) mg/dL 11/30/19 11/30/19 12/01/19 Range/Units 19:26 21:55 04:23 WBC 9.4 (4.0-10.5) K/mm3 RBC 4.22 (4.1-5.4) M/mm3 Hgb 12.9 (12.0-16.0) gm/dl Hct 39.8 (35-47) % MCV 94.3 (78-100) fl MCH 30.6 (26-32) pg MCHC 32.4 (32-36) g/dl RDW 13.9 (11.5-14.0) % Plt Count 325 (150-450) K/mm3 MPV 10.8 (7.5-11.0) fl Gran % 57.8 (36.0-66.0) % Eos # (Auto) 0.09 (0-0.5) Absolute Lymphs (auto) 2.90 (1.0-4.6) Absolute Monos (auto) 0.93 (0.0-1.3) Lymphocytes % 30.9 (24.0-44.0) % Monocytes % 9.9 (0.0-12.0) % Eosinophils % 1.0 (0.00-5.0) % Basophils % 0.4 (0.0-0.4) % Absolute Granulocytes 5.42 (1.4-6.9) Basophils # 0.04 (0-0.4) Ionized Calcium 1.23 (1.12-1.32) mmol/L Sodium (137-145) mmol/L Potassium (3.5-5.1) mmol/L Chloride (98-107) mmol/L Carbon Dioxide (22-30) mmol/L Anion Gap (5-15) MEQ/L BUN (7-17) mg/dL Creatinine (0.52-1.04) mg/dL Estimated GFR ML/MIN Glucose (74-106) mg/dL Calcium (8.4-10.2) mg/dL Magnesium (1.6-2.3) mg/dL Total Bilirubin (0.2-1.3) mg/dL AST (14-36) U/L ALT (0-35) U/L Alkaline Phosphatase (38-126) U/L Troponin I < 0.012 (0.000-0.034) ng/mL NT-Pro-B Natriuret Pep (0-900) pg/mL Serum Total Protein (6.3-8.2) g/dL Albumin (3.5-5.0) g/dL Triglycerides (30-150) mg/dL Cholesterol (50-200) mg/dL LDL Cholesterol (30-100) mg/dL HDL Cholesterol (40-60) mg/dL Heart Disease Risk Ratio TSH 3rd Generation (0.47-4.68) mIU/L Urine Color (YELLOW) Urine Appearance (CLEAR) Urine pH (5-6) Ur Specific [place] (1.005-1.025) Urine Protein (Negative) Urine Ketones (NEGATIVE) Urine Blood (0-5) Luis/ul Urine Nitrite (NEGATIVE) Urine Bilirubin (NEGATIVE) Urine Urobilinogen (0-1) mg/dL Ur Leukocyte Esterase (NEGATIVE) Urine WBC (Auto) (0-5) /HPF U Epithel Cells (Auto) (FEW) /HPF Urine Culture Reflexed (NO) Urine Glucose (NEGATIVE) mg/dL 12/01/19 Range/Units 04:23 WBC (4.0-10.5) K/mm3 RBC (4.1-5.4) M/mm3 Hgb (12.0-16.0) gm/dl Hct (35-47) % MCV (78-100) fl MCH (26-32) pg MCHC (32-36) g/dl RDW (11.5-14.0) % Plt Count (150-450) K/mm3 MPV (7.5-11.0) fl Gran % (36.0-66.0) % Eos # (Auto) (0-0.5) Absolute Lymphs (auto) (1.0-4.6) Absolute Monos (auto) (0.0-1.3) Lymphocytes % (24.0-44.0) % Monocytes % (0.0-12.0) % Eosinophils % (0.00-5.0) % Basophils % (0.0-0.4) % Absolute Granulocytes (1.4-6.9) Basophils # (0-0.4) Ionized Calcium (1.12-1.32) mmol/L Sodium 137 (137-145) mmol/L Potassium 3.8 (3.5-5.1) mmol/L Chloride 102 (98-107) mmol/L Carbon Dioxide 27 (22-30) mmol/L Anion Gap 11.1 (5-15) MEQ/L BUN 12 (7-17) mg/dL Creatinine 0.65 (0.52-1.04) mg/dL Estimated GFR > 60.0 ML/MIN Glucose 99 (74-106) mg/dL Calcium 10.0 (8.4-10.2) mg/dL Magnesium (1.6-2.3) mg/dL Total Bilirubin 0.80 (0.2-1.3) mg/dL AST 21 (14-36) U/L ALT 16 (0-35) U/L Alkaline Phosphatase 51 (38-126) U/L Troponin I < 0.012 (0.000-0.034) ng/mL NT-Pro-B Natriuret Pep (0-900) pg/mL Serum Total Protein 7.1 (6.3-8.2) g/dL Albumin 4.5 (3.5-5.0) g/dL Triglycerides (30-150) mg/dL Cholesterol (50-200) mg/dL LDL Cholesterol (30-100) mg/dL HDL Cholesterol (40-60) mg/dL Heart Disease Risk Ratio TSH 3rd Generation (0.47-4.68) mIU/L Urine Color (YELLOW) Urine Appearance (CLEAR) Urine pH (5-6) Ur Specific [place] (1.005-1.025) Urine Protein (Negative) Urine Ketones (NEGATIVE) Urine Blood (0-5) Luis/ul Urine Nitrite (NEGATIVE) Urine Bilirubin (NEGATIVE) Urine Urobilinogen (0-1) mg/dL Ur Leukocyte Esterase (NEGATIVE) Urine WBC (Auto) (0-5) /HPF U Epithel Cells (Auto) (FEW) /HPF Urine Culture Reflexed (NO) Urine Glucose (NEGATIVE) mg/dL - Radiology Impressions Radiology Exams & Impressions: Radiology Procedures Category Date Time Status CHEST 1 VIEW (PORTABLE) Stat Exams 11/30/19 09:49 Completed ECHO W/2D AND DOPPLER [US] Routine Exams 12/01/19 Ordered Hospital Summary - Vitals & Intake/Output Vital Signs: Vital Signs Temperature 98.0 F 12/01/19 08:00 Pulse Rate 59 L 12/01/19 08:00 Respiratory Rate 17 12/01/19 08:00 Blood Pressure 122/69 12/01/19 08:00 O2 Sat by Pulse Oximetry 94 L 12/01/19 08:00 Intake & Output: Intake & Output 11/28/19 11/29/19 11/30/19 12/01/19 11:59 11:59 11:59 11:59 Intake Total 1140 Output Total 1550 Balance -410 Weight 55.338 kg 55 kg - Lab Result Diagrams: 12/01/19 04:23 12/01/19 04:23 Lab Results-Last 24 Hrs: Lab Results-Last 24 Hours 11/30/19 11/30/19 11/30/19 Range/Units 10:00 10:00 10:00 WBC 10.4 (4.0-10.5) K/mm3 RBC 4.83 (4.1-5.4) M/mm3 Hgb 14.6 (12.0-16.0) gm/dl Hct 45.0 (35-47) % MCV 93.2 (78-100) fl MCH 30.2 (26-32) pg MCHC 32.4 (32-36) g/dl RDW 13.7 (11.5-14.0) % Plt Count 369 (150-450) K/mm3 MPV 10.3 (7.5-11.0) fl Gran % 78.3 H (36.0-66.0) % Eos # (Auto) 0.01 (0-0.5) Absolute Lymphs (auto) 1.51 (1.0-4.6) Absolute Monos (auto) 0.70 (0.0-1.3) Lymphocytes % 14.6 L (24.0-44.0) % Monocytes % 6.8 (0.0-12.0) % Eosinophils % 0.1 (0.00-5.0) % Basophils % 0.2 (0.0-0.4) % Absolute Granulocytes 8.13 H (1.4-6.9) Basophils # 0.02 (0-0.4) Ionized Calcium (1.12-1.32) mmol/L Sodium 141 (137-145) mmol/L Potassium 3.4 L (3.5-5.1) mmol/L Chloride 103 (98-107) mmol/L Carbon Dioxide 28 (22-30) mmol/L Anion Gap 13.3 (5-15) MEQ/L BUN 9 (7-17) mg/dL Creatinine 0.61 (0.52-1.04) mg/dL Estimated GFR > 60.0 ML/MIN Glucose 132 H (74-106) mg/dL Calcium 10.5 H (8.4-10.2) mg/dL Magnesium 2.1 (1.6-2.3) mg/dL Total Bilirubin 0.50 (0.2-1.3) mg/dL AST 22 (14-36) U/L ALT 19 (0-35) U/L Alkaline Phosphatase 73 (38-126) U/L Troponin I < 0.012 (0.000-0.034) ng/mL NT-Pro-B Natriuret Pep 144 (0-900) pg/mL Serum Total Protein 8.7 H (6.3-8.2) g/dL Albumin 5.3 H (3.5-5.0) g/dL Triglycerides (30-150) mg/dL Cholesterol (50-200) mg/dL LDL Cholesterol (30-100) mg/dL HDL Cholesterol (40-60) mg/dL Heart Disease Risk Ratio TSH 3rd Generation (0.47-4.68) mIU/L Urine Color (YELLOW) Urine Appearance (CLEAR) Urine pH (5-6) Ur Specific [place] (1.005-1.025) Urine Protein (Negative) Urine Ketones (NEGATIVE) Urine Blood (0-5) Luis/ul Urine Nitrite (NEGATIVE) Urine Bilirubin (NEGATIVE) Urine Urobilinogen (0-1) mg/dL Ur Leukocyte Esterase (NEGATIVE) Urine WBC (Auto) (0-5) /HPF U Epithel Cells (Auto) (FEW) /HPF Urine Culture Reflexed (NO) Urine Glucose (NEGATIVE) mg/dL 11/30/19 11/30/19 11/30/19 Range/Units 10:00 13:04 16:07 WBC (4.0-10.5) K/mm3 RBC (4.1-5.4) M/mm3 Hgb (12.0-16.0) gm/dl Hct (35-47) % MCV (78-100) fl MCH (26-32) pg MCHC (32-36) g/dl RDW (11.5-14.0) % Plt Count (150-450) K/mm3 MPV (7.5-11.0) fl Gran % (36.0-66.0) % Eos # (Auto) (0-0.5) Absolute Lymphs (auto) (1.0-4.6) Absolute Monos (auto) (0.0-1.3) Lymphocytes % (24.0-44.0) % Monocytes % (0.0-12.0) % Eosinophils % (0.00-5.0) % Basophils % (0.0-0.4) % Absolute Granulocytes (1.4-6.9) Basophils # (0-0.4) Ionized Calcium (1.12-1.32) mmol/L Sodium (137-145) mmol/L Potassium (3.5-5.1) mmol/L Chloride (98-107) mmol/L Carbon Dioxide (22-30) mmol/L Anion Gap (5-15) MEQ/L BUN (7-17) mg/dL Creatinine (0.52-1.04) mg/dL Estimated GFR ML/MIN Glucose (74-106) mg/dL Calcium (8.4-10.2) mg/dL Magnesium (1.6-2.3) mg/dL Total Bilirubin (0.2-1.3) mg/dL AST (14-36) U/L ALT (0-35) U/L Alkaline Phosphatase (38-126) U/L Troponin I < 0.012 < 0.012 (0.000-0.034) ng/mL NT-Pro-B Natriuret Pep (0-900) pg/mL Serum Total Protein (6.3-8.2) g/dL Albumin (3.5-5.0) g/dL Triglycerides (30-150) mg/dL Cholesterol (50-200) mg/dL LDL Cholesterol (30-100) mg/dL HDL Cholesterol (40-60) mg/dL Heart Disease Risk Ratio TSH 3rd Generation (0.47-4.68) mIU/L Urine Color STRAW (YELLOW) Urine Appearance CLEAR (CLEAR) Urine pH 7.0 (5-6) Ur Specific [place] 1.002 (1.005-1.025) Urine Protein NEGATIVE (Negative) Urine Ketones NEGATIVE (NEGATIVE) Urine Blood NEGATIVE (0-5) Luis/ul Urine Nitrite NEGATIVE (NEGATIVE) Urine Bilirubin NEGATIVE (NEGATIVE) Urine Urobilinogen NEGATIVE (0-1) mg/dL Ur Leukocyte Esterase NEGATIVE (NEGATIVE) Urine WBC (Auto) NONE (0-5) /HPF U Epithel Cells (Auto) NONE (FEW) /HPF Urine Culture Reflexed NO (NO) Urine Glucose NEGATIVE (NEGATIVE) mg/dL 11/30/19 11/30/19 11/30/19 Range/Units 19:00 19:00 19:00 WBC (4.0-10.5) K/mm3 RBC (4.1-5.4) M/mm3 Hgb (12.0-16.0) gm/dl Hct (35-47) % MCV (78-100) fl MCH (26-32) pg MCHC (32-36) g/dl RDW (11.5-14.0) % Plt Count (150-450) K/mm3 MPV (7.5-11.0) fl Gran % (36.0-66.0) % Eos # (Auto) (0-0.5) Absolute Lymphs (auto) (1.0-4.6) Absolute Monos (auto) (0.0-1.3) Lymphocytes % (24.0-44.0) % Monocytes % (0.0-12.0) % Eosinophils % (0.00-5.0) % Basophils % (0.0-0.4) % Absolute Granulocytes (1.4-6.9) Basophils # (0-0.4) Ionized Calcium (1.12-1.32) mmol/L Sodium 138 (137-145) mmol/L Potassium 3.9 (3.5-5.1) mmol/L Chloride 103 (98-107) mmol/L Carbon Dioxide 25 (22-30) mmol/L Anion Gap 14.3 (5-15) MEQ/L BUN 12 (7-17) mg/dL Creatinine 0.63 (0.52-1.04) mg/dL Estimated GFR > 60.0 ML/MIN Glucose 109 H (74-106) mg/dL Calcium 10.1 (8.4-10.2) mg/dL Magnesium (1.6-2.3) mg/dL Total Bilirubin (0.2-1.3) mg/dL AST (14-36) U/L ALT (0-35) U/L Alkaline Phosphatase (38-126) U/L Troponin I < 0.012 (0.000-0.034) ng/mL NT-Pro-B Natriuret Pep 160 (0-900) pg/mL Serum Total Protein (6.3-8.2) g/dL Albumin (3.5-5.0) g/dL Triglycerides 73 (30-150) mg/dL Cholesterol 175 (50-200) mg/dL LDL Cholesterol 87 (30-100) mg/dL HDL Cholesterol 73 H (40-60) mg/dL Heart Disease Risk Ratio 2.4 TSH 3rd Generation 1.570 (0.47-4.68) mIU/L Urine Color (YELLOW) Urine Appearance (CLEAR) Urine pH (5-6) Ur Specific [place] (1.005-1.025) Urine Protein (Negative) Urine Ketones (NEGATIVE) Urine Blood (0-5) Luis/ul Urine Nitrite (NEGATIVE) Urine Bilirubin (NEGATIVE) Urine Urobilinogen (0-1) mg/dL Ur Leukocyte Esterase (NEGATIVE) Urine WBC (Auto) (0-5) /HPF U Epithel Cells (Auto) (FEW) /HPF Urine Culture Reflexed (NO) Urine Glucose (NEGATIVE) mg/dL 11/30/19 11/30/19 12/01/19 Range/Units 19:26 21:55 04:23 WBC 9.4 (4.0-10.5) K/mm3 RBC 4.22 (4.1-5.4) M/mm3 Hgb 12.9 (12.0-16.0) gm/dl Hct 39.8 (35-47) % MCV 94.3 (78-100) fl MCH 30.6 (26-32) pg MCHC 32.4 (32-36) g/dl RDW 13.9 (11.5-14.0) % Plt Count 325 (150-450) K/mm3 MPV 10.8 (7.5-11.0) fl Gran % 57.8 (36.0-66.0) % Eos # (Auto) 0.09 (0-0.5) Absolute Lymphs (auto) 2.90 (1.0-4.6) Absolute Monos (auto) 0.93 (0.0-1.3) Lymphocytes % 30.9 (24.0-44.0) % Monocytes % 9.9 (0.0-12.0) % Eosinophils % 1.0 (0.00-5.0) % Basophils % 0.4 (0.0-0.4) % Absolute Granulocytes 5.42 (1.4-6.9) Basophils # 0.04 (0-0.4) Ionized Calcium 1.23 (1.12-1.32) mmol/L Sodium (137-145) mmol/L Potassium (3.5-5.1) mmol/L Chloride (98-107) mmol/L Carbon Dioxide (22-30) mmol/L Anion Gap (5-15) MEQ/L BUN (7-17) mg/dL Creatinine (0.52-1.04) mg/dL Estimated GFR ML/MIN Glucose (74-106) mg/dL Calcium (8.4-10.2) mg/dL Magnesium (1.6-2.3) mg/dL Total Bilirubin (0.2-1.3) mg/dL AST (14-36) U/L ALT (0-35) U/L Alkaline Phosphatase (38-126) U/L Troponin I < 0.012 (0.000-0.034) ng/mL NT-Pro-B Natriuret Pep (0-900) pg/mL Serum Total Protein (6.3-8.2) g/dL Albumin (3.5-5.0) g/dL Triglycerides (30-150) mg/dL Cholesterol (50-200) mg/dL LDL Cholesterol (30-100) mg/dL HDL Cholesterol (40-60) mg/dL Heart Disease Risk Ratio TSH 3rd Generation (0.47-4.68) mIU/L Urine Color (YELLOW) Urine Appearance (CLEAR) Urine pH (5-6) Ur Specific [place] (1.005-1.025) Urine Protein (Negative) Urine Ketones (NEGATIVE) Urine Blood (0-5) Luis/ul Urine Nitrite (NEGATIVE) Urine Bilirubin (NEGATIVE) Urine Urobilinogen (0-1) mg/dL Ur Leukocyte Esterase (NEGATIVE) Urine WBC (Auto) (0-5) /HPF U Epithel Cells (Auto) (FEW) /HPF Urine Culture Reflexed (NO) Urine Glucose (NEGATIVE) mg/dL 12/01/19 Range/Units 04:23 WBC (4.0-10.5) K/mm3 RBC (4.1-5.4) M/mm3 Hgb (12.0-16.0) gm/dl Hct (35-47) % MCV (78-100) fl MCH (26-32) pg MCHC (32-36) g/dl RDW (11.5-14.0) % Plt Count (150-450) K/mm3 MPV (7.5-11.0) fl Gran % (36.0-66.0) % Eos # (Auto) (0-0.5) Absolute Lymphs (auto) (1.0-4.6) Absolute Monos (auto) (0.0-1.3) Lymphocytes % (24.0-44.0) % Monocytes % (0.0-12.0) % Eosinophils % (0.00-5.0) % Basophils % (0.0-0.4) % Absolute Granulocytes (1.4-6.9) Basophils # (0-0.4) Ionized Calcium (1.12-1.32) mmol/L Sodium 137 (137-145) mmol/L Potassium 3.8 (3.5-5.1) mmol/L Chloride 102 (98-107) mmol/L Carbon Dioxide 27 (22-30) mmol/L Anion Gap 11.1 (5-15) MEQ/L BUN 12 (7-17) mg/dL Creatinine 0.65 (0.52-1.04) mg/dL Estimated GFR > 60.0 ML/MIN Glucose 99 (74-106) mg/dL Calcium 10.0 (8.4-10.2) mg/dL Magnesium (1.6-2.3) mg/dL Total Bilirubin 0.80 (0.2-1.3) mg/dL AST 21 (14-36) U/L ALT 16 (0-35) U/L Alkaline Phosphatase 51 (38-126) U/L Troponin I < 0.012 (0.000-0.034) ng/mL NT-Pro-B Natriuret Pep (0-900) pg/mL Serum Total Protein 7.1 (6.3-8.2) g/dL Albumin 4.5 (3.5-5.0) g/dL Triglycerides (30-150) mg/dL Cholesterol (50-200) mg/dL LDL Cholesterol (30-100) mg/dL HDL Cholesterol (40-60) mg/dL Heart Disease Risk Ratio TSH 3rd Generation (0.47-4.68) mIU/L Urine Color (YELLOW) Urine Appearance (CLEAR) Urine pH (5-6) Ur Specific [place] (1.005-1.025) Urine Protein (Negative) Urine Ketones (NEGATIVE) Urine Blood (0-5) Luis/ul Urine Nitrite (NEGATIVE) Urine Bilirubin (NEGATIVE) Urine Urobilinogen (0-1) mg/dL Ur Leukocyte Esterase (NEGATIVE) Urine WBC (Auto) (0-5) /HPF U Epithel Cells (Auto) (FEW) /HPF Urine Culture Reflexed (NO) Urine Glucose (NEGATIVE) mg/dL - Radiology Exams Ordered Rad Exams-Entire Visit: Radiology Procedures Category Date Time Status CHEST 1 VIEW (PORTABLE) Stat Exams 11/30/19 09:49 Completed ECHO W/2D AND DOPPLER [US] Routine Exams 12/01/19 Ordered - Discharge Disposition: Home, Self-Care Condition: Stable Prescriptions: No Action Diltiazem HCl [Cartia Xt] 120 mg PO DAILY Follow up with: KATHY RUBIN DO [Primary Care Provider] - 1 Week
[2019-12-01] MEDS ORDERED: Cardizem CD 120 MG PO SCH (10:00)
[2019-12-01 12:04] VITALS: BP 140/84; PULSE 85; O2SAT 97
[2019-12-02] MEDS ORDERED: DILTIAZEM HCL 120 MG PO SCH (10:00)
== END 2019-12-01 13:11 | disposition home or self-care (01) ==
LOC: ED 09:33 → MED SURG 11:49
PROVIDERS: ADMIT Family Medicine; ATTEND Family Medicine
DX: I16.0 Hypertensive urgency (principal); F41.9 Anxiety disorder, unspecified; Z79.899 Other long term (current) drug therapy
CPT/HCPCS: 36000; 36415; 71045; 80048; 80053; 80061; 81001; 81050; 82088; 82330; 82542; 83721; 83735; 83835; 83880; 84443; 84484; 84585; 85025; 93005; 93041; 93268; 93306; 94760; 99285; A9270-GY; G0378